=== PATIENT | male | born 1965 | race Caucasian/White ===

== ENCOUNTER 2022-12-16 09:09 | Day surgery (SDC) | payer OTHER ==
[2022-12-16] MEDS ORDERED: Sodium Bicarbonate 2.5 MEQ/5 ML VIAL ONE ×2 (09:28→10:06)
[2022-12-16] MEDS ORDERED: Lidocaine 1% PF 5 ML VIAL ONE ×2 (09:28→10:06)
[2022-12-16] MEDS ORDERED: Iopamidol-M 200 41% 20 ML VIAL ONE (11:09)
[2022-12-16 11:17] VITALS: BP 142/93; TEMP 97.4; BMI 36.7
[2022-12-16] MEDS ORDERED: FLU VACC QS2022-23(6MOS UP)/PF 60 MCG/0.5 ML SYRINGE IM ONE (12:00)
== END 2022-12-16 11:30 | disposition home or self-care (01) ==
LOC: CSHRAD 09:09
PROVIDERS: ATTEND Neurological Surgery
PROC: B02BYZZ Computerized Tomography (CT Scan) of Spinal Cord using Other Contrast (ICD-10-PCS; principal; 2022-12-16)
DX: M51.16 Intervertebral disc disorders with radiculopathy, lumbar region (principal); M48.061 Spinal stenosis, lumbar region without neurogenic claudication; F17.210 Nicotine dependence, cigarettes, uncomplicated; E66.9 Obesity, unspecified; Z68.36 Body mass index [BMI] 36.0-36.9, adult; Z79.899 Other long term (current) drug therapy; Z88.1 Allergy status to other antibiotic agents
CPT/HCPCS: 62304; 72132

== ENCOUNTER 2023-07-28 10:35 | Outpatient (CLI) | payer OTHER | END 2023-07-28 10:36 | disposition home or self-care (01) | LOC: CSHRAD 10:35 | PROVIDERS: ATTEND Neurological Surgery | DX: M47.26 Other spondylosis with radiculopathy, lumbar region (principal); Z98.890 Other specified postprocedural states | CPT/HCPCS: 72100 ==